=== PATIENT | female | born 1975 | race African-American/Black ===

== ENCOUNTER 2016-07-19 05:07 | Day surgery (SDC) | payer OTHER ==
[2016-07-12 14:16] VITALS: BMI 42.9
[~2016-07-19 05:07] MED LIST: BUPIVACAINE HCL/PF 0.5% (5MG/ML) 10 ML VIAL IJ ONE; LIDOCAINE HCL 1%, 10 MG/ML (20ML VIAL) IJ ONE
[2016-07-19] MEDS ORDERED: LIDOCAINE HCL 1%, 10 MG/ML (20ML VIAL) ONE (08:57)
[2016-07-19] MEDS ORDERED: BUPIVACAINE HCL/PF 0.5% (5MG/ML) 10 ML VIAL ONE (08:58)
[2016-07-19] MEDS ORDERED: PROPOFOL 20 ML ONE ×2 (10:05→10:31)
[2016-07-19] MEDS ORDERED: MIDAZOLAM HCL 2 MG/2 ML SINGLE DOSE VIAL ONE (10:06)
[2016-07-19] MEDS ORDERED: LIDOCAINE HCL/PF 2% SDV 5ML VIAL ONE (10:13)
[2016-07-19] MEDS ORDERED: ceFAZolin SODIUM 1 GM VIAL ONE (10:13)
[2016-07-19] MEDS ORDERED: ceFAZolin SODIUM 1 GM VIAL IVPB ONE (10:19)
[2016-07-19] MEDS ORDERED: LIDOCAINE HCL 1%, 10 MG/ML (20ML VIAL) IJ ONE ×2 (10:24)
[2016-07-19] MEDS ORDERED: BUPIVACAINE HCL/PF 0.5% (5MG/ML) 10 ML VIAL IJ ONE ×2 (10:24)
--- NOTE | 2016-07-19 10:53 | HP ---
Satellite [facility] - Chief Complaint Chief Complaint: right hand pain, numbness, weakness History of Present Illness: right CTS History Source: Patient Limitations to Obtaining History: No Limitations - Past Medical History Allergies/Adverse Reactions: Allergies Allergy/AdvReac Type Severity Reaction Status Date / Time No Known Drug Allergies Allergy Verified 07/12/16 14:16 ...LMP: 06/18/16 ...LMP Comment: REGULAR - Current Medications Current Medications: Home Medications Medication Instructions Recorded Bupropion HCl [Wellbutrin] 300 mg PO DAILY 03/20/12 Divalproex Na [Depakote] 500 mg PO DAILY 03/20/12 Divalproex Sprinkle [Depakote 750 mg PO HS 03/20/12 Sprinkle] Potassium Chloride [Klor-Con 10] 8 meq PO DAILY 03/20/12 Valacyclovir HCl [Valtrex] 500 mg PO BID 03/20/12 Triamterene/Hydrochlorothiazid 1 each PO DAILY 03/25/12 [Triamterene-Hctz 37.5-25 mg Cp] Quetiapine Fumarate [Seroquel -] 200 mg PO HS 10/28/14 Oxycodone HCl/Acetaminophen 1 each PO ASDIR PRN 08/30/15 [Percocet 10-325 mg Tablet] Albuterol Sulfate [Ventolin -] 2 inh IH PRN PRN 07/12/16 Fluticasone Prop 0.05% Nasal 1 inh IH DAILY 07/12/16 [Flonase -] Fluticasone Propionate [Flovent 1 inh .ROUTE PRN PRN 07/12/16 Diskus] Loratadine [Alavert] 10 mg PO DAILY 07/12/16 Duloxetine HCl [Cymbalta] 30 mg PO HS 07/19/16 Duloxetine HCl [Cymbalta] 60 mg PO DAILY 07/19/16 Hydrocodone/Acetaminophen [Vicodin 1 - 2 tab PO TID PRN #40 tablet 07/19/16 5-300 mg Tablet] MDD 6 Satellite Physical Exam - Physical Examination Vital Signs: Vital Signs Period Temp Pulse Resp BP Sys/San Pulse Ox Last 24 Hr 98.2 F 68 18 155/68 96 General Appearance: Well Nourished ENT: Clear Lung: Clear to auscultation Heart: Regular rate & rhythm Breasts: Soft Abdomen: Soft Extremities: No edema Satellite Impression/Plan - Impression/Plan Impression: right CTS Operative Procedure: right CTR Date to be Performed: 07/19/16
--- NOTE | 2016-07-19 10:54 | OP ---
Operative Note - Note: Operative Date: 07/19/16 Pre-Operative Diagnosis: right CTS, tenosynovitis Operation: right CTR, tenosynovectomy Post-Operative Diagnosis: Same as Pre-op Surgeon: Jesús Roberts Anesthesiologist/HOUSE ADMIN: Millie Vasquez Anesthesia: General, Local Specimens Removed: tenosynovium Estimated Blood Loss (mls): 0 Blood Volume Replaced (mls): 0 Fluid Volume Replaced (mls): 500 Operative Report Dictated: Yes
--- NOTE | 2016-07-19 10:54 | HP ---
Satellite [facility] - Chief Complaint Chief Complaint: right hand pain - Past Medical History Allergies/Adverse Reactions: Allergies Allergy/AdvReac Type Severity Reaction Status Date / Time No Known Drug Allergies Allergy Verified 07/12/16 14:16 ...LMP: 06/18/16 ...LMP Comment: REGULAR - Current Medications Current Medications: Home Medications Medication Instructions Recorded Bupropion HCl [Wellbutrin] 300 mg PO DAILY 03/20/12 Divalproex Na [Depakote] 500 mg PO DAILY 03/20/12 Divalproex Sprinkle [Depakote 750 mg PO HS 03/20/12 Sprinkle] Potassium Chloride [Klor-Con 10] 8 meq PO DAILY 03/20/12 Valacyclovir HCl [Valtrex] 500 mg PO BID 03/20/12 Triamterene/Hydrochlorothiazid 1 each PO DAILY 03/25/12 [Triamterene-Hctz 37.5-25 mg Cp] Quetiapine Fumarate [Seroquel -] 200 mg PO HS 10/28/14 Oxycodone HCl/Acetaminophen 1 each PO ASDIR PRN 08/30/15 [Percocet 10-325 mg Tablet] Albuterol Sulfate [Ventolin -] 2 inh IH PRN PRN 07/12/16 Fluticasone Prop 0.05% Nasal 1 inh IH DAILY 07/12/16 [Flonase -] Fluticasone Propionate [Flovent 1 inh .ROUTE PRN PRN 07/12/16 Diskus] Loratadine [Alavert] 10 mg PO DAILY 07/12/16 Duloxetine HCl [Cymbalta] 30 mg PO HS 07/19/16 Duloxetine HCl [Cymbalta] 60 mg PO DAILY 07/19/16 Hydrocodone/Acetaminophen [Vicodin 1 - 2 tab PO TID PRN #40 tablet 07/19/16 5-300 mg Tablet] MDD 6 Satellite Physical Exam - Physical Examination Vital Signs: Vital Signs Period Temp Pulse Resp BP Sys/San Pulse Ox Last 24 Hr 98.2 F 68 18 155/68 96 General Appearance: Well Nourished, Well Developed, Alert & Oriented x3 ENT: Clear Lung: Normal air movement Heart: Regular rate & rhythm Extremities: Other (right hand- + ttp, + tinels, + phalens EMG + cts) Neurological: Intact, Alert, Oriented Satellite Impression/Plan - Impression/Plan Impression: right cts Operative Procedure: right ctr Date to be Performed: 07/19/16
[2016-07-19] MEDS ORDERED: oxyCODONE HCL 5 MG TABLET PO PRN (11:06)
[2016-07-19] MEDS ORDERED: ONDANSETRON 4 MG/2 ML VIAL IVPUSH PRN (11:06)
[2016-07-19] MEDS ORDERED: LACTATED RINGERS SOLUTION 1,000 ML IV SCH (11:15)
[2016-07-19 11:26] VITALS: TEMP 98.2
--- NOTE | 2016-07-19 11:35 | SPEC ---
DATE OF OPERATION: 07/19/2016 PREOPERATIVE DIAGNOSIS: Right carpal tunnel syndrome and tenosynovitis. POSTOPERATIVE DIAGNOSIS: Right carpal tunnel syndrome and tenosynovitis. PROCEDURE: Right carpal tunnel release and tenosynovectomy. SURGEON: Oksana Chavarria MD ASSISTANTS: None. CUSTOMER SERVICE ASSOCIATE: Millie Vasquez CRNA ANESTHESIA: MAC, local injection of 12 mL 0.5% Marcaine and 1% lidocaine mix. DRAINS: None. COMPLICATIONS: None. SPECIMENS: Tenosynovium, right wrist. BLOOD LOSS: None. BLOOD GIVEN: None. FLUID REPLACEMENT: 500 mL. INDICATIONS: This patient is a 41-year-old female with history of bilateral carpal tunnel syndrome, spinal stenosis, fibromyalgia, and an [id number] left C7 radiculopathy. After understanding the potential risks, complications, alternatives, and benefits of surgery versus nonsurgical treatment, the patient elected to undergo the procedure. The patient understands she will not get complete relief of her symptoms, likely will have continuation of some numbness and the other symptoms. DESCRIPTION OF PROCEDURE: The patient was brought to the operating room, peripheral IV placed and intravenous sedation was given. One gram of intravenous Ancef was given. MAC anesthesia was induced. A tourniquet was applied to the right upper arm and the right upper extremity was prepped and draped in sterile fashion. The entire case was done under 3.8 loupe magnification. A marking pen was utilized to terence out a longitudinal incision in an already existing skin crease. Twenty mL of 0.5% Marcaine mixed with 1% Lidocaine was injected in and around the surgical incision. The right upper extremity was elevated, exsanguinated with an Esmarch bandage and the tourniquet inflated to 250 mmHg. A No. 15 scalpel blade was utilized to cut down through the skin. Subcutaneous hemostasis was achieved with the bipolar cautery. Dissection was done through the superficial palmar fascia. Self-retaining retractors were placed into the wound. Under direct visualization, the transverse carpal ligament was transected with a No. 15 scalpel blade, exposing the median nerve and the contents of the carpal tunnel. The distal and proximal extents of the release were completed with a Littler scissor and checked with irrigation and my small finger. They were seen to be complete. Limited dissection was done on the radial side of the median nerve and more extensive dissection was done on the ulnar side of the median nerve. The patients nerve was seen to be quite compressed by epineurium and therefore a limited epineurotomy was performed. A Ragnell retractor was used to gently retract the median nerve in a radial direction. The patient had a lot of tenosynovitis and therefore a tenosynovectomy was performed off all 9 flexor tendons. This was passed off the field as tenosynovium, right wrist. The floor of the carpal tunnel was checked. There were no abnormal masses or ganglion cysts. The area was copiously irrigated and washed out and closure begun. Undyed 4-0 Vicryl was used to close the deep dermal layer. Final skin reapproximation was done with horizontal mattress 4-0 nylon sutures. The area was then washed and dried, covered with Xeroform, 4x4s, fluffs between the fingers, Webril and a 4-inch plaster roll was utilized to make a volar splint, which was then wrapped with Hyun and Coban. The tourniquet was taken down after a total tourniquet time of 15 minutes. There were no complications during the case. The patient tolerated the procedure well and was brought to the ambulatory recovery room in stable condition. OKSANA CHAVARRIA M.D. [id number]
[2016-07-19 12:16] VITALS: BP 116/80; PULSE 88
--- NOTE | 2016-07-20 12:09 | PATH ---
Surgical Pathology Report Patient Name: MARYBETH THORNTON [facility]. Rec. #: [id number] /Age/Gender: 1975 (Age: 41) / F Account: [id number] Location: [facility] [place] [facility] Taken: 07/19/2016 Received: 07/19/2016 Reported: 07/20/2016 Physicians: Jesús Roberts M.D. Specimen(s) Received TENOSYNOVIUM Clinical History Carpal tunnel syndrome Final Diagnosis TENOSYNOVIUM, RIGHT HAND, CARPAL TUNNEL RELEASE: BENIGN TENOSYNOVIAL FIBROCONNECTIVE TISSUE WITH FOCAL MYXOID DEGENERATION. Electronically Signed Mendez Daniel M.D. Gross Description Received in formalin labeled "tenosynovium" is a 1.4 x 0.9 x 0.3 cm aggregate of brock-yellow, irregular portions of soft tissue, consistent with tenosynovium. The specimen is entirely submitted in one cassette. /07/19/201607/19/2016
== END 2016-07-19 12:05 | disposition home or self-care (01) ==
LOC: JASU-SURG 05:07
PROVIDERS: ATTEND Orthopaedic Surgery
PROC: 0LB60ZZ Excision of Left Lower Arm and Wrist Tendon, Open Approach (ICD-10-PCS; 2016-07-19)
PROC: 01N50ZZ Release Median Nerve, Open Approach (ICD-10-PCS; principal; 2016-07-19 09:30)
DX: G56.01 Carpal tunnel syndrome, right upper limb (principal); M65.821 Other synovitis and tenosynovitis, right upper arm
CPT/HCPCS: 84703; 88304-TC; 94760

== ENCOUNTER 2016-10-03 10:00 | Day surgery (SDC) | payer OTHER ==
[2016-09-28 13:45] VITALS: BMI 43.7
--- NOTE | 2016-10-03 09:09 | HP ---
Satellite [facility] - Chief Complaint Chief Complaint: left hand pain/numbness - Past Medical History Allergies/Adverse Reactions: Allergies Allergy/AdvReac Type Severity Reaction Status Date / Time No Known Drug Allergies Allergy Verified 09/28/16 13:52 ...LMP: 09/23/16 - Current Medications Current Medications: Home Medications Medication Instructions Recorded Bupropion HCl [Wellbutrin -] 300 mg PO DAILY 03/20/12 Divalproex Na [Depakote] 500 mg PO DAILY 03/20/12 Divalproex Sprinkle [Depakote 750 mg PO HS 03/20/12 Sprinkle -] Potassium Chloride [Klor-Con 10] 8 meq PO DAILY 03/20/12 Valacyclovir HCl [Valtrex -] 500 mg PO BID 03/20/12 Triamterene/Hydrochlorothiazid 1 each PO DAILY 03/25/12 [Triamterene-Hctz 37.5-25 mg Cp] Quetiapine Fumarate [Seroquel -] 200 mg PO HS 10/28/14 Albuterol Sulfate [Ventolin -] 2 inh IH PRN PRN 07/12/16 Fluticasone Prop 0.05% Nasal 1 inh IH DAILY 07/12/16 [Flonase -] Fluticasone Propionate [Flovent 1 inh .ROUTE PRN PRN 07/12/16 Diskus] Loratadine [Alavert] 10 mg PO DAILY 07/12/16 Duloxetine HCl [Cymbalta] 30 mg PO HS 07/19/16 Duloxetine HCl [Cymbalta] 60 mg PO DAILY 07/19/16 Oxycodone HCl 15 mg PO PRN PRN 09/28/16 Satellite Physical Exam - Physical Examination General Appearance: Well Nourished, Well Developed, Alert & Oriented x3 ENT: Clear Lung: Normal air movement Heart: Regular rate & rhythm Extremities: Other (left hand- + tinels, + phalens emg + cts) Neurological: Intact, Alert, Oriented Satellite Impression/Plan - Impression/Plan Impression: left cts Operative Procedure: left ctr Date to be Performed: 10/03/16
[2016-10-03 10:10] VITALS: TEMP 98
[2016-10-03] MEDS ORDERED: ceFAZolin SODIUM 1 GM VIAL IVPB ONE (11:35)
[2016-10-03] MEDS ORDERED: BUPIVACAINE HCL/PF (5 MG/ML) 30 ML VIAL IJ ONE ×2 (11:43)
[2016-10-03] MEDS ORDERED: LIDOCAINE HCL 1%, 10 MG/ML (50 mL VIAL) IJ ONE ×2 (11:43)
[2016-10-03] MEDS ORDERED: oxyCODONE HCL 5 MG TABLET PO PRN (12:12)
[2016-10-03] MEDS ORDERED: ONDANSETRON 4 MG/2 ML VIAL IVPUSH PRN (12:12)
[2016-10-03] MEDS ORDERED: LACTATED RINGERS SOLUTION 1,000 ML IV SCH (12:15)
--- NOTE | 2016-10-03 12:25 | OP ---
Operative Note - Note: Operative Date: 10/03/16 Pre-Operative Diagnosis: left CTS Operation: left CTR and tenosynovectomy Post-Operative Diagnosis: Same as Pre-op Surgeon: Jesús Roberts Anesthesiologist/HYSTER DRIVER: Dinah Mejia Anesthesia: General, Local Specimens Removed: tenosynovium Estimated Blood Loss (mls): 0 Drains, Volume Out (mls): 0 Blood Volume Replaced (mls): 0 Fluid Volume Replaced (mls): 500 Operative Report Dictated: Yes
[2016-10-03 14:12] VITALS: BP 93/52; PULSE 83
--- NOTE | 2016-10-04 08:40 | SPEC ---
DATE OF OPERATION: 10/03/2016 PREOPERATIVE DIAGNOSIS: Left carpal tunnel syndrome. POSTOPERATIVE DIAGNOSIS: Left carpal tunnel syndrome. PROCEDURE: Left carpal tunnel release and tenosynovectomy. SURGEON: Jesús Roberts MD ASSISTANTS: None. ANESTHESIOLOGIST: Dinah Mejia MD ANESTHESIA: MAC anesthesia, local injection with 10 mL of 0.5% Marcaine and 1% Lidocaine mix. DRAINS: None. COMPLICATIONS: None. SPECIMEN: Tenosynovium, left wrist. BLOOD LOSS: None. BLOOD GIVEN: None. FLUID REPLACEMENT: 500 mL. INDICATIONS: This patient is a 41-year-old female with a preoperative diagnosis of severe recurrent left carpal tunnel syndrome. After understanding the potential risks, complications, alternatives and benefits of surgery versus nonsurgical treatment, the patient elected to undergo this procedure. DESCRIPTION OF PROCEDURE: The patient was brought to the operating room, peripheral IV placed and intravenous sedation was given. She did receive 2 g of IV Ancef. MAC anesthesia was induced. A tourniquet was applied to the left upper arm and the left upper extremity was prepped and draped in sterile fashion. The entire case was done under 3.8 loupe magnification. A marking pen was utilized to terence out a longitudinal incision in an already existing skin crease. Twenty mL of 0.5% Marcaine mixed with 1% Lidocaine was injected in and around the surgical incision. The left upper extremity was elevated, exsanguinated with an Esmarch bandage and the tourniquet inflated to 250mm of mercury. A No. 15 scalpel blade was utilized to cut down through the skin. Subcutaneous hemostasis was achieved with the bipolar cautery. Dissection was done through the superficial palmar fascia. Self-retaining retractors were placed into the wound. Under direct visualization, the transverse carpal ligament was transected with a No. 15 scalpel blade, exposing the median nerve and the contents of the carpal tunnel. The distal and proximal extents of the release were completed with a Littler scissor and checked with irrigation and my small finger. They were seen to be complete. Limited dissection was done on the radial side of the median nerve and more extensive dissection was done on the ulnar side of the median nerve. The patients nerve was seen to be quite compressed by epineurium and therefore a limited epineurotomy was performed. A Ragnell retractor was used to gently retract the median nerve in a radial direction. The patient had a lot of tenosynovitis and therefore a limited tenosynovectomy was performed off multiple flexor tendons, at least three. This was passed off the field as tenosynovium left wrist. The floor of the carpal tunnel was checked. There were no abnormal masses or ganglion cysts. The area was copiously irrigated and washed out and closure begun. Undyed 4-0 Vicryl was used to close the deep dermal layer. Final skin reapproximation was done with horizontal mattress 4-0 nylon sutures. The area was then washed and dried, covered with Xeroform, 4x4s, fluffs between the fingers, Webril and a 4-inch plaster roll was utilized to make a volar splint, which was then wrapped with Hyun and Coban. The tourniquet was taken down after a total tourniquet time of 18 minutes. There were no complications during the case. The patient tolerated the procedure well and was brought to the ambulatory recovery room in stable condition. Kaya [id number]
--- NOTE | 2016-10-04 14:24 | PATH ---
Surgical Pathology Report Patient Name: MARYBETH THORNTON [facility]. Rec. #: [id number] /Age/Gender: 1975 (Age: 41) / F Account: [id number] Location: [facility] Taken: 10/03/2016 Received: 10/03/2016 Reported: 10/04/2016 Physicians: Jesús Roberts M.D. Specimen(s) Received TENOSYNOVIUM LEFT WRIST Clinical History Left carpal tunnel syndrome Final Diagnosis SOFT TISSUE, LEFT FACE, TENOSYNOVIUM, CARPAL TUNNEL RELEASE: BENIGN TENOSYNOVIAL FIBROCONNECTIVE TISSUE WITH MYXOID DEGENERATION. Electronically Signed Mendez Daniel M.D. Gross Description Received in formalin labeled "tenosynovium left wrist" is a 2.0 x 1.4 x 0.3 cm aggregate of brock-yellow, irregular portions of soft tissue. The specimen is submitted in toto in one cassette. /10/03/2016 saudi10/03/2016
== END 2016-10-03 13:50 | disposition home or self-care (01) ==
LOC: JASU-SURG 10:00
PROVIDERS: ATTEND Orthopaedic Surgery
PROC: 0LB60ZZ Excision of Left Lower Arm and Wrist Tendon, Open Approach (ICD-10-PCS; 2016-10-03)
PROC: 01N50ZZ Release Median Nerve, Open Approach (ICD-10-PCS; principal; 2016-10-03 10:30)
DX: G56.02 Carpal tunnel syndrome, left upper limb (principal); M65.842 Other synovitis and tenosynovitis, left hand
CPT/HCPCS: 84703; 88304-TC

== ENCOUNTER 2016-10-19 13:20 | Emergency (ER) | payer OTHER ==
[2016-10-19 13:27] VITALS: BP 119/71; PULSE 94; TEMP 98.4; BMI 42.9
--- NOTE | 2016-10-19 13:56 | PDOC ---
History of Present Illness - General Chief Complaint: Toothache Stated Complaint: toothache, s/p tooth extraction Time Seen by Provider: 10/19/16 13:50 Past History - Past Medical History Allergies/Adverse Reactions: Allergies Allergy/AdvReac Type Severity Reaction Status Date / Time No Known Drug Allergies Allergy Verified 10/19/16 13:27 Home Medications: Ambulatory Orders Bupropion HCl [Wellbutrin -] 300 mg PO DAILY 03/20/12 Divalproex Na [Depakote] 500 mg PO DAILY 03/20/12 Divalproex Sprinkle [Depakote Sprinkle -] 750 mg PO HS 03/20/12 Potassium Chloride [Klor-Con 10] 8 meq PO DAILY 03/20/12 Valacyclovir HCl [Valtrex -] 500 mg PO BID 03/20/12 Triamterene/Hydrochlorothiazid [Triamterene-Hctz 37.5-25 mg Cp] 1 each PO DAILY 03/25/12 Quetiapine Fumarate [Seroquel -] 200 mg PO HS 10/28/14 Albuterol Sulfate [Ventolin -] 2 inh IH PRN PRN 07/12/16 Fluticasone Prop 0.05% Nasal [Flonase -] 1 inh IH DAILY 07/12/16 Fluticasone Propionate [Flovent Diskus] 1 inh .ROUTE PRN PRN 07/12/16 Loratadine [Alavert] 10 mg PO DAILY 07/12/16 Duloxetine HCl [Cymbalta] 30 mg PO HS 07/19/16 Duloxetine HCl [Cymbalta] 60 mg PO DAILY 07/19/16 Oxycodone HCl 15 mg PO PRN PRN 09/28/16 Anemia: No Asthma: Yes (?BRONCHITIS) Cancer: No Cardiac Disorders: No CVA: No COPD: No CHF: No Dementia: No Diabetes: No GI Disorders: Yes (heartburn) Disorders: No HTN: Yes Hypercholesterolemia: No Liver Disease: No Seizures: No Thyroid Disease: No Other medical history: obesity - Surgical History Abdominal Surgery: No Appendectomy: No Cardiac Surgery: No Cholecystectomy: Yes Lung Surgery: No Neurologic Surgery: No Orthopedic Surgery: Yes - Psycho/Social/Smoking Cessation Hx Suicidal Ideation: No Smoking History: Current every day smoker Have you smoked in the past 12 months: Yes Number of Cigarettes Smoked Daily: 4 Information on smoking cessation initiated: Yes 'Breaking Loose' booklet given: 10/19/16 Hx Alcohol Use: No Drug/Substance Use Hx: No Substance Use Type: None Hx Substance Use Treatment: No *Physical Exam - Vital Signs Last Vital Signs Temp Pulse Resp BP Pulse Ox 98.4 F 94 H 17 119/71 99 10/19/16 13:25 10/19/16 13:25 10/19/16 13:25 10/19/16 13:25 10/19/16 13:25 Procedures - Additional Procedures Additional Procedures: other (dental block) Medical Decision Making - Medical Decision Making 10/19/16 15:13 Dental block performed. 30g needle used for infraavelolar block. Internal sulcus palpated, needle introduced at 10 o'clock angle. Bone was felt and the needle was withdrawn slighlty. Aspiration showed no blood. 1cclidocaine and 1ccbuprivocane given. \ pt. reports feeling much better after the nerve block. Will discharge home at this time. *DC/Admit/Observation/Transfer Diagnosis at time of Disposition: Tooth pain - Discharge Dispostion Disposition: HOME Condition at time of disposition: Improved Admit: No - Referrals Referrals: Xochitl Krishnamurthy [Primary Care Provider] - - Patient Instructions Printed Discharge Instructions: DI for Dental Pain Additional Instructions: You were given a dental block today in the ED. This should help with the pain for a few hours. Follow up with your dentist as soon as possible. Return to the ED if you have worsening pain, fevers, chills, or any changes in your symptoms.
[2016-10-19] MEDS ORDERED: KETOROLAC TROMETHAMINE 60 MG/2 ML VIAL IM ONE (14:27)
[2016-10-19] MEDS ORDERED: KETOROLAC TROMETHAMINE 60 MG/2 ML VIAL ONE (14:30)
[2016-10-19] MEDS ORDERED: BUPIVACAINE HCL/PF (5 MG/ML) 30 ML VIAL IJ ONE (14:33)
[2016-10-19] MEDS ORDERED: LIDOCAINE HCL 2% JELLY 10 ML CARTRIDGE ONE (14:38)
[2016-10-19] MEDS ORDERED: BUPIVACAINE HCL/PF 0.5% (5MG/ML) 10 ML VIAL ONE (14:39)
[2016-10-19] MEDS ORDERED: LIDOCAINE HCL 2% JELLY 10 ML CARTRIDGE PR ONE (14:39)
== END 2016-10-19 15:32 | disposition home or self-care (01) ==
LOC: JERFT 13:20
PROC: 3E0233Z Introduction of Anti-inflammatory into Muscle, Percutaneous Approach (ICD-10-PCS; principal; 2016-10-19)
DX: K08.89 Other specified disorders of teeth and supporting structures (principal); K08.109 Complete loss of teeth, unspecified cause, unspecified class
CPT/HCPCS: 96372; 99281-25

== ENCOUNTER 2017-05-21 09:13 | Day surgery (SDC) | payer OTHER ==
[2017-05-20 14:27] VITALS: BMI 46.3
[2017-05-21] MEDS ORDERED: BUPIVACAINE HCL/PF 0.25% (2.5MG/ML) 10 ML VIAL ONE (10:59)
[2017-05-21] MEDS ORDERED: BETAMET ACET/BETAMET NA PH 30 MG/5 ML VIAL ONE (10:59)
[2017-05-21] MEDS ORDERED: LIDOCAINE HCL 1%, 10 MG/ML (20ML VIAL) ONE (10:59)
[2017-05-21] MEDS ORDERED: PROPOFOL 20 ML ONE ×2 (11:11→11:25)
[2017-05-21] MEDS ORDERED: BUPIVACAINE HCL/PF 0.25% (2.5MG/ML) 10 ML VIAL IJ ONE (11:20)
[2017-05-21] MEDS ORDERED: BETAMET ACET/BETAMET NA PH 30 MG/5 ML VIAL IJ ONE (11:20)
[2017-05-21] MEDS ORDERED: IOHEXOL 180 MG/1 ML ML IJ ONE (11:20)
[2017-05-21] MEDS ORDERED: LIDOCAINE HCL 1%, 10 MG/ML (50 mL VIAL) IJ ONE (11:20)
--- NOTE | 2017-05-21 12:01 | PROC ---
Procedure Note Procedure: Date of service: 05/21/2017 Preoperative Diagnosis: Low back pain and lumbar radiculopathy on right Postoperative Diagnosis: Same Procedure Performed: Lumbar Epidural Steroid Injection (LESI) on Right L4-5 with dye under Fluoroscopy Anesthesia: Local / MAC Anesthesiologist: Ayana Procedure: I discussed with the patient in detail about the risks, benefits, and alternatives to treatment not only limited to infection, headache, numbness , weakness, and injury to nerves, blood vessels and muscles. The patient understood, agreed and signed the written consent. The patient was placed in the prone position with the head, abdomen and legs supported with the pillows. The lumbosacral area was prepped and draped with Betadine times three in a sterile fashion. Lumbar vertebrae were identified under the C-arm. At L4-5 level on the right side, 3 ml of 1 % Lidocaine was infiltrated into the skin and subcutaneous tissue. A 3 inch, #20 gauge Tuohy needle was advanced to the epidural space with loss of resistance technique under fluoroscopic guidance. Aspiration was negative for cerebrospinal fluid and blood. 2ml of Omnipaque ( radio-opaque dye) was injected to confirm the tip of the needle into epidural space and spread of dye. There was no CSF or vascular spread. The spread of dye was noted cranially and caudally on epidurogram. Aspiration was done again which was negative. A solution of 2.5 ml of Celestone, 2.5 ml of 0.25% Marcaine and a total of 5 ml was injected slowly. While Tuohy needle was withdrawn 2.0 ml of 1 % Lidocaine was infiltrated. Bleeding was checked. Betadine was wiped off. A sterile bandage was placed. The patient tolerated the procedure well. There were no immediate complications. The patient was transferred to the recovery room. The patient was observed for some time and discharged as per ASU criteria. The patient was told to apply ice at the injection site. Follow up appointment was given and also call my office at [phone]. If there is any problem, call my office or report to Emergency Room. Danie Fletcher M.D.
[2017-05-21] MEDS ORDERED: ACETAMINOPHEN 325 MG TABLET (FP) PO PRN (12:16)
[2017-05-21] MEDS ORDERED: oxyCODONE HCL 5 MG TABLET PO PRN (12:16)
[2017-05-21] MEDS ORDERED: ONDANSETRON 4 MG/2 ML VIAL IVPUSH PRN (12:16)
[2017-05-21] MEDS ORDERED: LACTATED RINGERS SOLUTION 1,000 ML IV SCH (12:30)
[2017-05-21 13:54] VITALS: TEMP 97.8
[2017-05-21 13:58] VITALS: BP 110/68; PULSE 84
== END 2017-05-21 12:40 | disposition home or self-care (01) ==
LOC: JOR 09:13 → JASU-SURG 09:13
PROVIDERS: ATTEND Physical Medicine & Rehabilitation
PROC: 3E0R33Z Introduction of Anti-inflammatory into Spinal Canal, Percutaneous Approach (ICD-10-PCS; 2017-05-21)
PROC: B01BYZZ Fluoroscopy of Spinal Cord using Other Contrast (ICD-10-PCS; 2017-05-21)
PROC: 3E0R3BZ Introduction of Anesthetic Agent into Spinal Canal, Percutaneous Approach (ICD-10-PCS; principal; 2017-05-21 10:30)
DX: M54.16 Radiculopathy, lumbar region (principal); M54.5 Low back pain
CPT/HCPCS: 76000-TC-FY; 84703

== ENCOUNTER 2020-09-28 16:24 | Emergency (ER) | payer OTHER ==
[2020-09-28 16:28] VITALS: BP 152/99; PULSE 97; TEMP 97; BMI 44.4
== END 2020-09-28 19:38 | disposition left against medical advice (07) ==
LOC: JER 16:24
DX: R00.2 Palpitations (principal)
CPT/HCPCS: 99281-25